=== PATIENT | male | born 1975 | race Native Hawaiian/Other Pacific Islander ===

== ENCOUNTER 2018-10-17 15:50 | Emergency (ER) | payer BC ==
[~2018-10-17] VITALS: Ht 180.3 cm; Wt 95.3 kg
[2018-10-17 16:07] VITALS: BP 140/92; TEMP 97.7
== END 2018-10-17 20:20 | disposition home or self-care (01) ==
LOC: ED 15:50
DX: S46.911A Strain of unspecified muscle, fascia and tendon at shoulder and upper arm level, right arm, initial encounter (principal); V59.40XA Driver of pick-up truck or van injured in collision with unspecified motor vehicles in traffic accident, initial encounter
CPT/HCPCS: 99282; 99283

== ENCOUNTER 2020-05-27 22:12 | Observation (INO) | payer BC ==
[~2020-05-27] VITALS: Ht 180.3 cm; Wt 101.2 kg
[2020-05-27 22:48] LABS: PLATELET COUNT 215 K/uL (142-355)
[2020-05-27 22:53] LABS: POTASSIUM 3.5 mmol/L (3.6-5.2)
[2020-05-27 23:39] VITALS: BP 145/85
[2020-05-27 23:51] VITALS: BP 128/70
[2020-05-28 01:38] VITALS: BP 120/77
[2020-05-28 01:45] VITALS: BP 128/73
[2020-05-28 02:00] VITALS: BP 124/73
[2020-05-28 02:15] VITALS: BP 125/76
[2020-05-28 02:22] VITALS: BP 140/82
[2020-05-28 03:05] VITALS: BP 137/72; TEMP 98; Ht 180.3 cm; Wt 101.2 kg
--- NOTE | 2020-05-28 04:11 | NUR ---
PATIENTS STAT RAPID COVID TEST WAS NEGITIVE
--- NOTE | 2020-05-28 04:25 | NUR ---
PATIENT IS RESTING QUIETLY ON HIS LEFT SIDE. THE PATIENT REPORTS HIS "PAIN HAS DECREESED." NS FLUID BOLUS STARTED. BED IN LOW POSITION, SIDERALES UP X2, AND NON SKID SOCKS ON. PATIENT HAS BEEN ORIENTED TO ROOM AND [facility]
--- NOTE | 2020-05-28 07:50 | NUR ---
RESTING ON L SIDE. DENIES ABD PAIN. STATES PAIN HAS BEEN IN MY LOWER BACK. EATING ON ICE CHIPS. SYLVIE WELL.
--- NOTE | 2020-05-28 08:48 | NUR ---
CALL FOR UPDATE ON PATIENT.
--- NOTE | 2020-05-28 12:00 | NUR ---
DIET CHANGED TO LIQUID. Pt. SYLVIE WELL.
[2020-05-28 13:12] LABS: PLATELET COUNT 173 K/uL (142-355)
[2020-05-28 13:26] LABS: POTASSIUM 3.7 mmol/L (3.6-5.2)
--- NOTE | 2020-05-28 18:30 | NUR ---
DIET CHANGED TO REG. DR. FOWLER WILL D/C IF SYLVIE.
--- NOTE | 2020-05-28 22:23 | NUR ---
PATIENT WAS GIVEN DISCHARGE ORDERS. THE PAPERWORK WAS SIGNED AND PERSCRIPTIONS GIVEN. TEACHING WAS GIVEN ON THE NEW MEDICATIONS AND QUESTIONS ANSWERED ABOUT ANY ADVERSE SIDE EFFECTS. PATIENT WAS ADVISED BY DR FOWLER WHAT LAB WORK HE SHOULD FOLLOW UP WITH. PAPERS WERE GIVEN TO HIM WITH THAT INFORMATION ON THEM WELL INFORMATION ABOUT HIS DIAGNOSIS. HIS HOSPITIZATIONS [place] WAS GIVEN AND AMPLE TIME OF QUESTIONS ALLOWED. PATIENT DENIED ANY PAIN. THE IV IN HIS THE 20G IN THE RIGHT HAND WAS D/C AND THE CATHITER WAS INTACT. THE SITE IS CLEAN DRY THINK AND INTACT
== END 2020-05-28 20:18 | disposition home or self-care (01) ==
LOC: ED 22:12 → MED/SURG 05-28 01:40
PROVIDERS: ADMIT Family Medicine; ATTEND Internal Medicine Endocrinology, Diabetes & Metabolism
DX: K85.80 Other acute pancreatitis without necrosis or infection (principal); E87.6 Hypokalemia; R11.2 Nausea with vomiting, unspecified
CPT/HCPCS: 36415; 80053; 80320; 81000; 82150; 83690; 85027; 87635; 96360; 96361; 96366; 96372; 96374; 96375; 96376; 99220; 99284; G0378; J1170; J1644; J1885; J2175; J2405; J2550; U0003